=== PATIENT | female | born 1995 | race Caucasian/White ===

== ENCOUNTER 2023-03-16 17:42 | Inpatient (IN) | payer MEDICAID, SELFPAY ==
[2023-03-16 17:53] VITALS: BMI 61.0
[2023-03-16 17:54] VITALS: BP 135/81; PULSE 67; RESP 17; TEMP 37; O2SAT 98
[2023-03-16] MEDS: hyDROXYzine 25 mg Capsule 50 MG PO (18:42)
--- NOTE | 2023-03-16 18:42 | PC.NURSE ---
PRN VISTARIL 50 MG GIVEN PO PER PT C/O STATED ANXIETY
[2023-03-16 20:25] VITALS: BP 144/77; PULSE 72; RESP 17; TEMP 36.8; O2SAT 97
[2023-03-17 06:00] VITALS: RESP 18
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
[2023-03-17 14:00] VITALS: BP 123/77; PULSE 87; RESP 14; TEMP 36.9; O2SAT 95
[2023-03-17] MEDS: buPROPion SR (12 HR) 150 mg Tablet PO (15:29)
[2023-03-17 20:09] VITALS: BP 149/96; PULSE 98; RESP 18; TEMP 36.7; O2SAT 100
[2023-03-17] MEDS: trazodone 50 mg Tablet PO (20:14)
[2023-03-18 06:00] VITALS: BP 120/80; PULSE 86; RESP 18; O2SAT 98
[2023-03-18] MEDS: buPROPion XL (24 HR) 150 mg Tablet PO (08:43)
--- NOTE | 2023-03-18 11:45 | P.NPUPN_ITS ---
Subjective NPU Subjective: Patient presented today reporting that she is tolerating the Wellbutrin XL. We discussed making sure she is taking her home medications as well. She denied any side effects of the medication. We discussed starting today to consider discharge planning but acknowledging that she had a significant overdose and we need to make sure that appropriate safety meds are in place at discharge. Mental Status Exam MSE Comments: This is a morbidly, obese, white female, with limited grooming and eye contact. No abnormal movements, except for mild psychomotor retardation. Cooperative with exam in mild distress. Speech was normal rate and volume. Mood described as pretty good; affect slightly subdued. Thought process, organized. Thought content: patient denied any suicidal or homicidal ideation, there were no delusions reported or noted, patient denied any auditory or visual hallucinations. Attention, concentration, and memory appeared intact, but none were formally tested. Alert and oriented times three. Insight and judgment appear limited. Impulse control is impaired. Vitals/I&O/Wt Last Vital Signs Temp 98.1 F 03/17/23 20:09 Pulse 86 03/18/23 06:00 Resp 18 03/18/23 06:00 BP 120/80 03/18/23 06:00 Pulse Ox 98 03/18/23 06:00 O2 Del Method Room Air 03/18/23 06:00 Weight last 48 hrs Weight 176.901 kg A&P Assessment and plan (1) Major depressive disorder, recurrent: (2) Borderline personality disorder: Plan This is a 27-year-old white female with a long history of depression self- injurious behaviors and multiple overdose attempts with likely cluster B personality disorder/borderline personality disorder who presents status post overdose attempt with several days spent at the outside hospital before transfer. 1.? Continue current medication. Except discontinue Wellbutrin SR. 2.? Start Wellbutrin XL 150 mg every morning. 3.? Encourage individual, group, and milieu therapy. 4.? Continue q-15-minute checks for safety. 5. Obtain collateral information and work with outpatient team to determine if any reasonable methods to manage her pills exist given her propensity towards his behavior and clear need for DBT treatment Involuntary Hold Information 96 Hour Hold: 96 Hour Involuntary Admission: No Attestations NPU Medical Necessity Statement*: Inpatient hospitalization is medically necessary and the clinically appropriate intervention, at this time. We will monitor medications and make changes as indicated. Likely length of stay is 1-4 days. Coding Level of Care Code Acute Code for Chg Fwd Diagnoses Major depressive disorder, recurrent F33.9 Borderline personality disorder F60.3
[2023-03-18 14:00] VITALS: BP 137/96; PULSE 83; RESP 13; TEMP 36.9; O2SAT 98
[2023-03-18] MEDS: ibuprofen 600 mg Tablet PO (19:27)
[2023-03-18] MEDS: hyDROXYzine 25 mg Capsule 50 MG PO (19:27)
[2023-03-18 19:49] VITALS: BP 157/92; PULSE 91; RESP 18; TEMP 36.9; O2SAT 95
--- NOTE | 2023-03-19 08:26 | P.NPUPN_ITS ---
Subjective NPU Subjective: Patient presents today reporting that she is doing fine. She continues to feel that she is prepared to be out of the hospital because she had a lengthy stay in the medical side secondary to her significant suicide attempt. We discussed feeling it is important for there to be a process by which she has less access to multiple pills at a time either through prescribing or through an outpatient program. She endorses that such a program is either in place or being put in place. We discussed working with the social work team to identify the veracity of that statement and considering discharge in the next 48 hours but likely tomorrow. Mental Status Exam MSE Comments: This is a morbidly, obese, white female, with limited grooming and eye contact. No abnormal movements, except for mild psychomotor retardation. Cooperative with exam in mild distress. Speech was normal rate and volume. Mood described as pretty good; affect slightly subdued. Thought process, organized. Thought content: patient denied any suicidal or homicidal ideation, there were no delusions reported or noted, patient denied any auditory or visual hallucinations. Attention, concentration, and memory appeared intact, but none were formally tested. Alert and oriented times three. Insight and judgment appear limited. Impulse control is impaired. Vitals/I&O/Wt Last Vital Signs Temp 98.5 F 03/18/23 19:49 Pulse 91 03/18/23 19:49 Resp 18 03/18/23 19:49 BP 157/92 03/18/23 19:49 Pulse Ox 95 03/18/23 19:49 O2 Del Method Room Air 03/18/23 19:49 A&P Assessment and plan (1) Major depressive disorder, recurrent: (2) Borderline personality disorder: Plan This is a 27-year-old white female with a long history of depression self- injurious behaviors and multiple overdose attempts with likely cluster B person ality disorder/borderline personality disorder who presents status post overdose attempt with several days spent at the outside hospital before transfer. 1.? Continue current medication. Except discontinue Wellbutrin SR. 2.? Started Wellbutrin XL 150 mg every morning. 3.? Encourage individual, group, and milieu therapy. 4.? Continue q-15-minute checks for safety. 5. Obtain collateral information and work with outpatient team to determine if any reasonable methods to manage her pills exist given her propensity towards his behavior and clear need for DBT treatment. Will consider discharge tomorrow with plan for limited access to medication either through prescribing or outpatient resources. Involuntary Hold Information 96 Hour Hold: 96 Hour Involuntary Admission: No Attestations NPU Medical Necessity Statement*: Inpatient hospitalization is medically necessary and the clinically appropriate intervention, at this time. We will monitor medications and make changes as indicated. Likely length of stay is 1-3 days. Coding Level of Care Code Acute Code for [facility] Fwd Diagnoses Major depressive disorder, recurrent F33.9 Borderline personality disorder F60.3
[2023-03-19] MEDS: ARIPiprazole 10 mg Tablet PO (08:34)
[2023-03-19] MEDS: buPROPion XL (24 HR) 150 mg Tablet PO (08:34)
[2023-03-19] MEDS: diphenhydrAMINE 50 mg Capsule PO ×2 (13:11→20:00)
[2023-03-19 14:00] VITALS: BP 126/83; PULSE 91; RESP 16; TEMP 36.6; O2SAT 95
[2023-03-19] MEDS: hydrocortisone 1% cream 28 gm 1 APPLIC TOPICAL (17:31)
[2023-03-19 20:22] VITALS: BP 152/90; PULSE 80; RESP 17; TEMP 36.9; O2SAT 100
[2023-03-20 06:00] VITALS: BP 131/92; PULSE 105; RESP 18; TEMP 36.8; O2SAT 95
[2023-03-20] MEDS: buPROPion XL (24 HR) 150 mg Tablet PO (08:03)
[2023-03-20] MEDS: ARIPiprazole 10 mg Tablet PO (08:03)
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
[2023-03-20 12:36] VITALS: BP 131/92; PULSE 105; RESP 18; TEMP 36.8; O2SAT 95
[2023-03-20 14:00] VITALS: BP 156/84; PULSE 104; RESP 16; TEMP 36.6; O2SAT 98
[2023-03-20] MEDS: hyDROXYzine 25 mg Capsule 50 MG PO (16:44)
== END 2023-03-20 17:46 | disposition home or self-care (01) | DRG 885 ==
PROVIDERS: Admitting Provider Psychiatry & Neurology Psychiatry; Visit Provider Psychiatry & Neurology Psychiatry
DX: F33.9 Major depressive disorder, recurrent, unspecified (principal); R45.851 Suicidal ideations; Z68.44 Body mass index [BMI] 60.0-69.9, adult; F12.90 Cannabis use, unspecified, uncomplicated; E66.01 Morbid (severe) obesity due to excess calories; F60.3 Borderline personality disorder
CPT/HCPCS: 97150; 97165; Q0163